=== PATIENT | male | born 1990 | race Two or more races ===

== ENCOUNTER 2025-03-02 04:17 | Emergency (ER) | payer BC, SELFPAY ==
[2025-03-02 04:20] VITALS: BP 144/91; PULSE 109; RESP 18; TEMP 36.9; O2SAT 97
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
[2025-03-02 04:44] VITALS: BMI 36.2
[2025-03-02 04:46] VITALS: BP 134/89; PULSE 103; RESP 18; TEMP 36.8; O2SAT 98
== END 2025-03-02 05:08 ==
PROVIDERS: Emergency Provider Student in an Organized Health Care Education/Training Program
DX: Z02.89 Encounter for other administrative examinations (principal); F10.129 Alcohol abuse with intoxication, unspecified
CPT/HCPCS: 99281